=== PATIENT | male | born 1945 | race Caucasian/White ===

== ENCOUNTER → 2017-11-16 | Outpatient (CLI) | payer OTHER ==
[~2017-11-16] VITALS: Ht 182.9 cm; Wt 98.0 kg
[~2017-11-16] MED LIST: ASPIR 8181 MG PO; BYSTOLIC 5 MG5 MG PO; SIMVASTATIN40 MG PO; TOPROL XL25 MG PO
--- NOTE | ~2017-11-16 | CATHLAB ---
[facility] [employer] [place] [address] INVASIVE PROCEDURE REPORT Name: ROMÁN ESCOBAR Room #: REG CELIA DarielCharuUna#: [id number] Admission: 11/16/17 Attend Phys: Gio Viramontes, Discharge: Date of : 49 Date of Service: 11/19/17 1826 Report #: [id number] THIS REPORT FOR: //name// APPROVED REPORT Study performed: 11/16/2017 08:47:22 Patient Details Patient Status: Out-Patient Room #: The patient is a 72 year-old male Event Personnel Gio Viramontes Face Cleaner, Linda Abad, Eduardo Quezada Penny, Wes RN Procedures Performed Art Access - R femoral artery* 88742 Initial Mod Sed Same Phys/QHP Gr5y 962152 Left Heart Cath w/or w/o Coronaries [id number] [facility] Renal Bilateral Peripheral Angiography 3602116 CVRENALBIL Hemostasis w/ Mynx Indication Positive stress test Procedure Narrative The patient was brought electively to the Cardiac Catheterization Laboratory and was prepped and draped in a sterile manner. The Right Groin^ was infiltrated with 1% Lidocaine subcutaneous anesthesia. A PINNACLE 6FR Sheath #[id number] sheath was inserted into the RFA^. Coronary angiography was performed using coronary diagnostic catheters. The right coronary system was accessed and visualized with a JR 4 catheter. The left coronary system was accessed and visualized with a JL 4 catheter. The left ventricle was accessed and visualized with a Pigtail catheter. Left ventriculogram was performed in ANDREWS projection. An aortogram of the abdominal aorta was performed. Pre-demployment femoral angiogram was performed . Closure device was deployed with a 6 Fr Mynx. The patient tolerated the procedure well and there were no complications associated with the procedure. There was no hematoma. Intraoperative Conscious Sedation Sedation start time: 09:23 Case end Time: 09:40 Fentanyl 50 mcg Versed 1.5 mg [facility] [place] [address] INVASIVE PROCEDURE REPORT Name: ROMÁN ESCOBAR Room #: JESSEE Hoyt#: [id number] Admission: 11/16/17 Attend Phys: Gio Viramontes, Discharge: Date of : 49 Date of Service: 11/19/17 1826 Report #: [id number] Fluoro Time: 2.46 minutes Dose: DAP 4635.10 cGycm2 561 mGy Contrast Type and Amount: Omnipaque 100 ml Hemodynamics The aortic pressure is 128/67 mmHg with a mean of 82 mmHg. The left ventricular pressure is 129/5 mmHg with a mean of mmHg. The left ventricular end diastolic pressure is 17 mmHg. 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 No occlusive disease noted Recommendations and plan: Continue aggressive risk factor modification. No lifting for 48 hours no line tub Jacuzzi or Jorge for a week. Follow-up is arranged. <ELECTRONICALLY SIGNED> By: Gio Viramontes MD, FACC 11/19/17 182 25 25 Gio Viramontes MD, FACC /INF
--- NOTE | ~2017-11-16 | EKG ---
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
[2017-11-16 07:03] VITALS: BP 144/79
[2017-11-16 07:26] LABS: HEMATOCRIT 41.9 % (42.0-52.0); HEMOGLOBIN 14.5 gm/dL (14.0-18.0); MCH 32.1 pg (26.0-34.0); MCHC 34.6 g/dL (28.0-37.0); MCV 92.7 fL (80.0-100.0); RBC 4.52 mil/uL (4.50-6.00); RDW 13.1 % (10.5-14.5); WBC 6.1 thou/uL (4.0-11.0)
[2017-11-16 07:38] LABS: CALCIUM 9.2 mg/dL (8.5-10.1); CREATININE 0.9 mg/dL (0.7-1.3)
== END ==
LOC: CATH 06:35
PROVIDERS: Internal Medicine Cardiovascular Disease
DX: I25.10 Atherosclerotic heart disease of native coronary artery without angina pectoris (principal); I70.1 Atherosclerosis of renal artery; E78.5 Hyperlipidemia, unspecified; Z98.890 Other specified postprocedural states; Z82.49 Family history of ischemic heart disease and other diseases of the circulatory system; Z79.82 Long term (current) use of aspirin; Z79.899 Other long term (current) drug therapy

== ENCOUNTER → 2019-11-30 | Outpatient (CLI) | payer OTHER | LOC: SJCVCIMAG 08:36 | DX: I08.2 Rheumatic disorders of both aortic and tricuspid valves (principal); I10 Essential (primary) hypertension; E78.5 Hyperlipidemia, unspecified ==

== ENCOUNTER → 2020-06-26 | Outpatient (CLI) | payer OTHER | LOC: SJCVC 14:06 → SJCVCIMAG 14:06 | PROVIDERS: ATTEND Internal Medicine Cardiovascular Disease | DX: I65.23 Occlusion and stenosis of bilateral carotid arteries (principal); I25.10 Atherosclerotic heart disease of native coronary artery without angina pectoris; I10 Essential (primary) hypertension; E78.00 Pure hypercholesterolemia, unspecified; Z82.49 Family history of ischemic heart disease and other diseases of the circulatory system ==

== ENCOUNTER → 2021-05-23 | Outpatient (CLI) | payer OTHER | LOC: SJCVC 13:19 | PROVIDERS: ATTEND Internal Medicine Cardiovascular Disease | DX: R94.31 Abnormal electrocardiogram [ECG] [EKG] (principal); I25.10 Atherosclerotic heart disease of native coronary artery without angina pectoris; I10 Essential (primary) hypertension; E78.00 Pure hypercholesterolemia, unspecified; I77.9 Disorder of arteries and arterioles, unspecified; Z79.899 Other long term (current) drug therapy; Z72.89 Other problems related to lifestyle ==